=== PATIENT | male | born 1965 | race Caucasian/White ===

== ENCOUNTER 2017-11-13 11:22 | Emergency (ER) | payer BC ==
[~2017-11-13] VITALS: Ht 170.2 cm; Wt 125.0 kg
[2017-11-13] MEDS ORDERED: acetaminophen 325mg tablet PO ONE (11:35)
[2017-11-13 12:45] LABS: PARTIAL THROMBOPLASTIN TIME 25 SECONDS (22-32); PROTHROMBIN TIME 9.9 SECONDS (9.0-12.0)
[2017-11-13 12:50] LABS: ALANINE AMINOTRANSFERASE 80 U/L (12-78); ALBUMIN/GLOBULIN RATIO 1.1 (1.1-1.5); ALKALINE PHOSPHATASE 74 IU/L (46-116); ANION GAP 8 (8-16); ASPARTATE AMINO TRANSFERASE 45 U/L (10-37); BASOPHILS % (AUTO) 0.3 % (0-1); BILIRUBIN,TOTAL 0.8 MG/DL (0.1-1.0); BLOOD UREA NITROGEN 12 MG/DL (7-18); BUN/CREATININE RATIO 11.3 (5.4-32.0); CALCIUM 9.2 MG/DL (8.5-10.1); CHLORIDE 102 MMOL/L (99-107); CREATININE 1.06 MG/DL (0.60-1.10); EOSINOPHILS # (AUTO) 0.2 X10'3 (0-0.9); EOSINOPHILS % (AUTO) 1.6 % (0-6); GLUCOSE 144 MG/DL (70-104); HEMATOCRIT 41.9 % (42.0-52.0); HEMOGLOBIN 14.3 g/dl (14.0-17.9); LYMPHOCYTES % (AUTO) 7.8 % (21-51); MEAN CORPUSCULAR HEMOGLOBIN 29.7 PG (27.0-31.0); MEAN CORPUSCULAR HGB CONC 34.2 % (33.0-36.5); MEAN CORPUSCULAR VOLUME 86.8 FL (78-98); MEAN PLATELET VOLUME 6.8 FL (7.4-10.4); MONOCYTES # (AUTO) 0.8 X10'3 (0-0.9); MONOCYTES % (AUTO) 6.2 % (2-12); NEUTROPHILS # (AUTO) 10.3 X10'3 (1.8-7.7); NEUTROPHILS % (AUTO) 84.1 % (42-75); PLATELET COUNT 221 X10'3 (140-440); POTASSIUM 3.5 MMOL/L (3.5-5.1); RED BLOOD COUNT 4.83 X10'6 (4.70-6.10); RED CELL DISTRIBUTION WIDTH 13.9 % (11.5-14.5); SODIUM 137 MMOL/L (135-145); TOTAL CARBON DIOXIDE 27.2 MMOL/L (24-32); TOTAL PROTEIN 7.5 G/DL (6.4-8.2); WHITE BLOOD COUNT 12.3 X10'3 (4.5-11.0); eGFR 74 ML/MIN
[2017-11-13] MEDS ORDERED: hydrALAZINE 20mg/ml inj. IV ONE (13:00)
[2017-11-13] MEDS ORDERED: ketorolac tromethamine 15mg/ml inj. IV ONE (13:05)
[2017-11-13] MEDS ORDERED: ipratropium/albuterol 3ml nebule NEB ONE (13:10)
[2017-11-13] MEDS ORDERED: methylPREDNISolone sod succ 125mg/2ml vial IV ONE (13:10)
[2017-11-13 13:12] LABS: CLARITY,URINE CLEAR (Clear); COLOR,URINE YELLOW (Yellow); GLUCOSE, URINE 250 mg/dl (Neg); KETONES,URINE NEGATIVE (Neg); LEUKOCYTE ESTERASE ,URINE NEGATIVE (Neg); NITRITES, URINE NEGATIVE (Neg); OCCULT BLOOD,URINE MODERATE (Neg); PROTEIN,URINE 100 mg/dl (Neg); UROBILINOGEN,URINE 0.2 E.U/dL (0.2-1.0)
[2017-11-13 13:13] LABS: UA COLLECTION TYPE URINAL
[2017-11-13 13:23] LABS: BACTERIA,URINE NONE SEEN /HPF (Neg); RBC,URINE NONE SEEN /HPF (0-2); SQUAMOUS EPITHELIAL CELL,UR FEW /LPF (FEW); WBC,URINE NONE SEEN /HPF (0-4)
[2017-11-13] MEDS ORDERED: ondansetron/PF 4mg/2ml inj IV ONE (13:45)
[2017-11-13 14:20] LABS: D-DIMER 0.63 MG/L FEU (0-0.50)
[2017-11-13] MEDS ORDERED: iohexol 350MG/ML 100ml bottle IV ONE (14:40)
[2017-11-13] MEDS ORDERED: morphine 4 MG/ML inj SYRINge IV ONE (14:40)
[2017-11-13] MEDS ORDERED: levoFLOXACIN-Levaquin 750MG/D5 150 ML IV STA (14:41)
[2017-11-13] MEDS ORDERED: ALBU8.5H8 IH (16:01)
[2017-11-13] MEDS ORDERED: PRED20TA PO (16:01)
[2017-11-13] MEDS ORDERED: LEVO750T21 PO (16:01)
[2017-11-13] MEDS ORDERED: BENZ-16 PO (16:01)
[2017-11-13 16:27] VITALS: BP 139/69
== END 2017-11-13 17:01 | disposition home or self-care (01) ==
LOC: ER 11:23
DX: J32.2 Chronic ethmoidal sinusitis (principal); J40 Bronchitis, not specified as acute or chronic; I10 Essential (primary) hypertension; E78.00 Pure hypercholesterolemia, unspecified; Z88.0 Allergy status to penicillin; Z79.899 Other long term (current) drug therapy
CPT/HCPCS: 36415; 71045; 71275; 80053; 81001; 83605; 83880; 84145; 84484; 85025; 85379; 85610; 85730; 87040; 93005; 94640; 94760; 96365; 96366; 96375; 99285; J0360; J1885; J1956; J2270; J2405; J2930; J7030; Q9967

== ENCOUNTER 2020-03-31 00:30 | Inpatient (IN) | payer BC ==
[~2020-03-31] VITALS: Ht 170.2 cm; Wt 123.0 kg
[~2020-03-31 00:30] MED LIST: ALBU8.5H8 IH; BENZ-16 PO
[2020-03-31 01:05] LABS: BASOPHILS # (AUTO) 0.1 X10'3 (0-0.2); BASOPHILS % (AUTO) 0.6 % (0-1); EOSINOPHILS # (AUTO) 0.5 X10'3 (0-0.9); EOSINOPHILS % (AUTO) 4.7 % (0-6); HEMATOCRIT 40.1 % (42.0-52.0); HEMOGLOBIN 13.5 g/dl (14.0-17.9); LYMPHOCYTES # (AUTO) 2.4 X10'3 (1.1-4.8); LYMPHOCYTES % (AUTO) 21.9 % (21-51); MEAN CORPUSCULAR HEMOGLOBIN 29.7 PG (27.0-31.0); MEAN CORPUSCULAR HGB CONC 33.7 g/dL (33.0-36.5); MEAN PLATELET VOLUME 6.8 FL (7.4-10.4); MONOCYTES # (AUTO) 0.6 X10'3 (0-0.9); MONOCYTES % (AUTO) 5.4 % (2-12); NEUTROPHILS # (AUTO) 7.3 X10'3 (1.8-7.7); NEUTROPHILS % (AUTO) 67.4 % (42-75); PLATELET COUNT 285 X10'3 (140-440); RED BLOOD COUNT 4.55 X10'6 (4.70-6.10); RED CELL DISTRIBUTION WIDTH 14.3 % (11.5-14.5); WHITE BLOOD COUNT 10.9 X10'3 (4.5-11.0)
[2020-03-31 01:13] LABS: ALANINE AMINOTRANSFERASE 67 U/L (12-78); ALBUMIN 4.2 G/DL (3.4-5.0); ALBUMIN/GLOBULIN RATIO 1.1 (1.1-1.5); ALKALINE PHOSPHATASE 74 IU/L (46-116); ANION GAP 13 (8-16); ASPARTATE AMINO TRANSFERASE 32 U/L (10-37); BILIRUBIN,TOTAL 0.8 MG/DL (0.1-1.0); BLOOD UREA NITROGEN 17 MG/DL (7-18); BUN/CREATININE RATIO 12.8 (5.4-32.0); CALCIUM 9.7 MG/DL (8.5-10.1); CHLORIDE 102 MMOL/L (99-107); CREATININE 1.33 MG/DL (0.60-1.10); GLUCOSE 152 MG/DL (70-104); POTASSIUM 3.6 MMOL/L (3.5-5.1); SODIUM 141 MMOL/L (135-145); TOTAL CARBON DIOXIDE 25.7 MMOL/L (24-32); TOTAL PROTEIN 8.2 G/DL (6.4-8.2); eGFR 56 ML/MIN
[2020-03-31 01:20] LABS: MAGNESIUM 2.1 MG/DL (1.5-2.4)
[2020-03-31] MEDS ORDERED: furosemide 10 MG/1 ML 10ml inj IV ONE (01:30)
[2020-03-31] MEDS ORDERED: bisacodyl 10mg suppository rectal RC PRN (02:15)
[2020-03-31] MEDS ORDERED: HYDROcodone/acetaminophen 10/325mg tab PO PRN (02:15)
[2020-03-31] MEDS ORDERED: magnesium 2GM in 50ml NS 50 ML IV PRN (02:15)
[2020-03-31] MEDS ORDERED: ondansetron/PF 4mg/2ml inj IV PRN (02:15)
[2020-03-31] MEDS ORDERED: potassium Cl 20 mEq SR tablet PO PRN (02:15)
[2020-03-31] MEDS ORDERED: magnesium Cl slow-release 64mg tablet PO PRN (02:15)
[2020-03-31] MEDS ORDERED: HYDROcodone/acetaminophen 5mg/325mg tablet PO PRN (02:15)
[2020-03-31] MEDS ORDERED: acetaminophen 325mg tablet PO PRN ×2 (02:15)
[2020-03-31] MEDS ORDERED: magnesium hydroxide 30ml (MOM) UD suspension PO PRN (02:15)
[2020-03-31] MEDS ORDERED: magnesium 4gm in 100ml NS 100 ML IV PRN (02:15)
[2020-03-31] MEDS ORDERED: potassium Cl 40MEQ/1/2NS 520ml 520 ML IV PRN ×2 (02:15)
[2020-03-31] MEDS ORDERED: morphine 2 MG/ML inj. syringe IV PRN ×2 (02:15)
[2020-03-31] MEDS ORDERED: mag hydrox/Alum hydrox/simeth 30ml oral suspension PO PRN (02:15)
--- NOTE | 2020-03-31 02:32 | NUR ---
SCANNER IN ROOM 9 NOT WORKING
[2020-03-31] MEDS: K and/or MAG REPLACEMENT MC SCH ×2 (08:00→20:00)
[2020-03-31] MEDS: furosemide 40mg/4ml inj IV SCH ×2 (08:00→19:54)
[2020-03-31] MEDS: enoxaparin 40mg/0.4ml syringe SUBCUT SCH (08:00)
[2020-03-31 08:30] LABS: CHOLESTEROL 157 MG/DL (0-200); HDL CHOLESTEROL 39 MG/DL (35-60); LDL CHOLESTEROL 89 MG/DL (50-100); TRIGLYCERIDES 289 MG/DL (20-135)
[2020-03-31 10:50] VITALS: BP 122/77
--- NOTE | 2020-03-31 11:12 | NUR ---
TC FROM FOR CONDITION REPORT. INFORMED THAT FLINT HAS BEEN MOVED TO INPATIENT ROOM (5604J). ADDITIONAL CONTACT INFO GIVEN: PATIENT'S SISTER, ELIZABETH VELASCO
[2020-03-31] MEDS ORDERED: FLU VACC QS2020-21(6MOS UP)/PF 60 MCG/0.5 ML SYRINGE IMVAC ONE (12:05)
[2020-03-31] MEDS ORDERED: METO-395 PO (12:22)
[2020-03-31] MEDS ORDERED: ATOR10TA70 PO (12:22)
[2020-03-31] MEDS ORDERED: FENO134C PO (12:33)
[2020-03-31] MEDS ORDERED: LISI1TAB29 PO (12:33)
[2020-03-31] MEDS ORDERED: AMLO10TA PO (12:33)
[2020-03-31] MEDS ORDERED: LISI-600 PO (14:39)
[2020-03-31 15:00] VITALS: BP 126/66
[2020-03-31] MEDS ORDERED: albuterol 2.5 MG/3 ML nebule NEB PRN (15:00)
--- NOTE | 2020-03-31 15:38 | NUR ---
Paged Dr Mitchell PAGER ID: [phone] MESSAGE: [phone] Kristi [phone] Venancio Holt I was asked to inform you that they saw a possible clavicle fracture on the chest xray. Thank you.
[2020-03-31] MEDS: atorvastatin 10mg tablet PO SCH (15:56)
[2020-03-31] MEDS: metoprolol succinate 25mg (24-HOUR) SR. Tablet PO SCH (15:56)
[2020-03-31] MEDS: lisinopril 20mg tablet PO SCH (15:57)
[2020-03-31 18:00] VITALS: BP 105/64
--- NOTE | 2020-03-31 18:19 | NUR ---
Problems reprioritized. Patient report given, questions answered & plan of care reviewed with Christina SOTELO.
--- NOTE | 2020-03-31 18:59 | NUR ---
Patient in room PCU 3027. I have received report from DEEPAK Berry and had the opportunity to ask questions and assume patient care.
[2020-03-31] MEDS ORDERED: temazepam 15mg capsule PO PRN (21:00)
[2020-03-31 22:00] VITALS: BP 122/81
[2020-04-01 02:00] VITALS: BP 97/59
[2020-04-01 06:00] VITALS: BP 124/74
--- NOTE | 2020-04-01 06:10 | NUR ---
Problems reprioritized. Patient report given, questions answered & plan of care reviewed with Lex SOTELO and Zulay SOTELO.
[2020-04-01 06:26] LABS: HEMOGLOBIN 12.6 g/dl (14.0-17.9); MEAN CORPUSCULAR HGB CONC 34.1 g/dL (33.0-36.5); MEAN CORPUSCULAR VOLUME 88.1 FL (78-98); PLATELET COUNT 266 X10'3 (140-440); RED CELL DISTRIBUTION WIDTH 14.3 % (11.5-14.5); WHITE BLOOD COUNT 9.1 X10'3 (4.5-11.0)
--- NOTE | 2020-04-01 06:32 | NUR ---
Orientee documentation: I have reviewed and agree with all interventions, assessments performed and documented by DEEPAK Duffy.
[2020-04-01 06:35] LABS: ALBUMIN 3.9 G/DL (3.4-5.0); ANION GAP 10 (8-16); BLOOD UREA NITROGEN 25 MG/DL (7-18); BUN/CREATININE RATIO 17.2 (5.4-32.0); CALCIUM 9.7 MG/DL (8.5-10.1); CHLORIDE 104 MMOL/L (99-107); CHOL/HDL RATIO 4.6 (0.00-4.99); CHOLESTEROL 153 MG/DL (0-200); CREATININE 1.45 MG/DL (0.60-1.10); GLUCOSE 110 MG/DL (70-104); HDL CHOLESTEROL 33 MG/DL (35-60); LDL CHOLESTEROL 76 MG/DL (50-100); MAGNESIUM 2.2 MG/DL (1.5-2.4); POTASSIUM 3.5 MMOL/L (3.5-5.1); SODIUM 141 MMOL/L (135-145); TOTAL CARBON DIOXIDE 27.2 MMOL/L (24-32); TRIGLYCERIDES 286 MG/DL (20-135); eGFR 51 ML/MIN
[2020-04-01] MEDS: furosemide 40mg/4ml inj IV SCH ×2 (08:00→20:21)
[2020-04-01] MEDS: K and/or MAG REPLACEMENT MC SCH ×2 (08:00→20:00)
[2020-04-01] MEDS: amLODIPine 5mg tablet PO SCH (08:01)
[2020-04-01] MEDS: fenofibrate 145mg tablet PO SCH (08:01)
[2020-04-01] MEDS: metoprolol succinate 25mg (24-HOUR) SR. Tablet PO SCH (08:02)
[2020-04-01] MEDS: lisinopril 20mg tablet PO SCH (08:02)
[2020-04-01] MEDS: atorvastatin 10mg tablet PO SCH (08:02)
[2020-04-01] MEDS: enoxaparin 40mg/0.4ml syringe SUBCUT SCH (08:05)
[2020-04-01 11:00] VITALS: BP 130/76
[2020-04-01] MEDS ORDERED: metoprolol tartrate 1mg/ml inj IV PRN (11:45)
[2020-04-01] MEDS ORDERED: nitroGLYCERIN 0.4mg SUBLingual tab SL PRN (11:45)
[2020-04-01] MEDS ORDERED: regadenoson 0.4mg/5ml syringe IV ONE (11:45)
[2020-04-01] MEDS ORDERED: aminophylline 250mg/10ml inj. IV PRN (11:45)
[2020-04-01 15:00] VITALS: BP 115/70
[2020-04-01] MEDS ORDERED: iohexol 350MG/ML 100ml bottle IV ONE (15:29)
[2020-04-01 18:00] VITALS: BP 117/48
--- NOTE | 2020-04-01 18:13 | NUR ---
Problems reprioritized. Patient report given, questions answered & plan of care reviewed with Christina SOTELO.
--- NOTE | 2020-04-01 19:44 | NUR ---
Patient in room PCU 3027. I have received report from Lex RN/ Zulay RN and had the opportunity to ask questions and assume patient care.
[2020-04-01 22:00] VITALS: BP 90/57
[2020-04-02] VITALS (17 sets, daily range): BP systolic 85–115; BP diastolic 43–69
[2020-04-02 06:19] LABS: HEMOGLOBIN 12.3 g/dl (14.0-17.9); MEAN CORPUSCULAR HEMOGLOBIN 30.1 PG (27.0-31.0); MEAN CORPUSCULAR HGB CONC 34.1 g/dL (33.0-36.5); MEAN CORPUSCULAR VOLUME 88.2 FL (78-98); MEAN PLATELET VOLUME 6.8 FL (7.4-10.4); PLATELET COUNT 271 X10'3 (140-440); RED BLOOD COUNT 4.08 X10'6 (4.70-6.10); RED CELL DISTRIBUTION WIDTH 14.1 % (11.5-14.5); WHITE BLOOD COUNT 7.8 X10'3 (4.5-11.0)
[2020-04-02 06:25] LABS: ALBUMIN 3.7 G/DL (3.4-5.0); ANION GAP 8 (8-16); BLOOD UREA NITROGEN 32 MG/DL (7-18); CALCIUM 9.6 MG/DL (8.5-10.1); CHLORIDE 104 MMOL/L (99-107); CREATININE 1.78 MG/DL (0.60-1.10); GLUCOSE 110 MG/DL (70-104); MAGNESIUM 2.5 MG/DL (1.5-2.4); POTASSIUM 3.4 MMOL/L (3.5-5.1); SODIUM 141 MMOL/L (135-145); TOTAL CARBON DIOXIDE 29.1 MMOL/L (24-32); eGFR 40 ML/MIN
--- NOTE | 2020-04-02 06:30 | NUR ---
Patient in room U 3027. I have received report from RENU SOTELO and had the opportunity to ask questions and assume patient care. PT TALKING ON PHONE WITH . CALL LIGHT IN REACH. NO DISTRESS. Addendum: 04/02/20 at 0771 by Ricarda Young RN Amended: Links added.
--- NOTE | 2020-04-02 06:35 | NUR ---
Problems reprioritized. Patient report given, questions answered & plan of care reviewed with DEEPAK Chowdary.
[2020-04-02] MEDS: atorvastatin 10mg tablet PO SCH (07:51)
[2020-04-02] MEDS: fenofibrate 145mg tablet PO SCH (07:51)
[2020-04-02] MEDS: enoxaparin 40mg/0.4ml syringe SUBCUT SCH (07:52)
[2020-04-02] MEDS: potassium Cl 20 mEq SR tablet PO PRN ×3 (07:54→21:31)
[2020-04-02] MEDS: K and/or MAG REPLACEMENT MC SCH ×2 (08:00→20:00)
[2020-04-02] MEDS: furosemide 40mg/4ml inj IV SCH ×2 (10:25→21:32)
[2020-04-02] MEDS: lisinopril 20mg tablet PO SCH (10:28)
[2020-04-02] MEDS: amLODIPine 5mg tablet PO SCH (10:29)
[2020-04-02] MEDS: metoprolol succinate 25mg (24-HOUR) SR. Tablet PO SCH (10:29)
--- NOTE | 2020-04-02 12:14 | NUR ---
Problems reprioritized. Patient report given, questions answered & plan of care reviewed with JOYCELYN Bronson RN. Addendum: 04/02/20 at 1215 by Ricarda Young RN Amended: Links added.
--- NOTE | 2020-04-02 12:15 | NUR ---
Patient in room [place] [address]. I have received report from and had the opportunity to ask questions and assume patient care. Addendum: 04/02/20 at 1327 by Sherri Greenberg RN Patient in room [place] [address]. I have received report from DEEPAK Chowdary and had the opportunity to ask questions and assume patient care.
[2020-04-02] MEDS ORDERED: iohexol 350MG/ML 100ml bottle IV ONE (12:21)
[2020-04-02] MEDS ORDERED: nitroGLYCERIN-Tridil 50MG/D5W 250 ML IV ONE (12:21)
[2020-04-02] MEDS ORDERED: LIDOcaine 1% (10mg/ml)w/preservative injection 20ml MDV ONE (12:21)
[2020-04-02] MEDS ORDERED: verapamil 2.5 mg/ml inj IV ONE (12:21)
[2020-04-02] MEDS ORDERED: heparin 1,000unit/ml 10ml vial 10 ML ONE (12:21)
[2020-04-02] MEDS ORDERED: midazolam 2 mg/2 ml injection ONE ×4 (12:21→13:21)
[2020-04-02] MEDS ORDERED: fentaNYL/PF 50MCG/1 ML 2ML syringe ONE ×2 (12:21→13:24)
[2020-04-02] MEDS ORDERED: OXAZEpam 15mg capsule PO PRN (14:25)
[2020-04-02] MEDS ORDERED: proCHLORperazine 10 MG/2 ml inj IV PRN (14:25)
[2020-04-02] MEDS ORDERED: ondansetron/PF 4mg/2ml inj IV PRN (14:25)
--- NOTE | 2020-04-02 16:17 | NUR ---
Patient in room U 3027. I have received report from SPRING FORMER MACHINE and had the opportunity to ask questions and assume patient care.
--- NOTE | 2020-04-02 16:50 | NUR ---
Problems reprioritized. Patient report given, questions answered & plan of care reviewed with DEEPAK Ruelas.
--- NOTE | 2020-04-02 16:50 | NUR ---
Patient in room PCU 3027. I have received report from Sherri SOTELO and had the opportunity to ask questions and assume patient care.
--- NOTE | 2020-04-02 17:09 | NUR ---
Paged Respiratory Re Venancio Holt [id number] Can I get somebody to move pt's Bipap machine to ACCE in room 309 please. [phone] Thank you :)
--- NOTE | 2020-04-02 17:15 | NUR ---
Transferred patient to ACCE room 309 per MD orders, with wheelchair. Helped pt ambulate to bed with standby assistance. DEEPAK Ruelas at bedside to take over patient's care. All pt needs met at this time.
--- NOTE | 2020-04-02 17:15 | NUR ---
patient arrived to floor, vital signs and 2 RN skin check performed. Pili
[2020-04-03] VITALS (7 sets, daily range): BP systolic 81–118; BP diastolic 36–67
--- NOTE | 2020-04-03 06:39 | NUR ---
Problems reprioritized. Patient report given, questions answered & plan of care reviewed with MARNIE SOTELO.
[2020-04-03 07:25] LABS: HEMATOCRIT 32.9 % (42.0-52.0); HEMOGLOBIN 11.1 g/dl (14.0-17.9); MEAN CORPUSCULAR HEMOGLOBIN 29.9 PG (27.0-31.0); MEAN CORPUSCULAR HGB CONC 33.7 g/dL (33.0-36.5); MEAN CORPUSCULAR VOLUME 88.7 FL (78-98); PLATELET COUNT 243 X10'3 (140-440); RED BLOOD COUNT 3.71 X10'6 (4.70-6.10); RED CELL DISTRIBUTION WIDTH 13.9 % (11.5-14.5); WHITE BLOOD COUNT 6.3 X10'3 (4.5-11.0)
[2020-04-03 07:45] LABS: ALBUMIN 3.4 G/DL (3.4-5.0); ANION GAP 11 (8-16); BLOOD UREA NITROGEN 39 MG/DL (7-18); BUN/CREATININE RATIO 21.8 (5.4-32.0); CALCIUM 9.2 MG/DL (8.5-10.1); CHLORIDE 104 MMOL/L (99-107); CREATININE 1.79 MG/DL (0.60-1.10); GLUCOSE 120 MG/DL (70-104); MAGNESIUM 2.5 MG/DL (1.5-2.4); POTASSIUM 3.6 MMOL/L (3.5-5.1); SODIUM 141 MMOL/L (135-145); TOTAL CARBON DIOXIDE 26.1 MMOL/L (24-32); eGFR 40 ML/MIN
[2020-04-03] MEDS: metoprolol succinate 25mg (24-HOUR) SR. Tablet PO SCH (07:50)
[2020-04-03] MEDS: amLODIPine 5mg tablet PO SCH (07:52)
[2020-04-03] MEDS: enoxaparin 40mg/0.4ml syringe SUBCUT SCH (07:53)
[2020-04-03] MEDS: furosemide 40mg/4ml inj IV SCH ×2 (07:54→20:00)
[2020-04-03] MEDS: fenofibrate 145mg tablet PO SCH (07:54)
[2020-04-03] MEDS: atorvastatin 10mg tablet PO SCH (07:54)
[2020-04-03] MEDS: lisinopril 20mg tablet PO SCH (07:54)
--- NOTE | 2020-04-03 18:15 | NUR ---
Patient in room MED 309. I have received report from DEEPAK Baker and had the opportunity to ask questions and assume patient care.
--- NOTE | 2020-04-03 18:16 | NUR ---
SBAR report given to Layla SOTELO, emar reviewed, questions answered
[2020-04-03] MEDS: K and/or MAG REPLACEMENT MC SCH (19:20)
[2020-04-04 02:00] VITALS: BP 105/60
--- NOTE | 2020-04-04 04:44 | NUR ---
Rt. was up until 2a.m worried about his fanatical situation .I place Social Service order per protocol ,so he can get help.We will continue with pt. care.
[2020-04-04 06:00] VITALS: BP 89/51
--- NOTE | 2020-04-04 06:20 | NUR ---
Problems reprioritized. Patient report given, questions answered & plan of care reviewed with DEEPAK Kelly.
[2020-04-04 06:23] LABS: HEMATOCRIT 33.7 % (42.0-52.0); HEMOGLOBIN 11.5 g/dl (14.0-17.9); MEAN CORPUSCULAR HEMOGLOBIN 30.1 PG (27.0-31.0); MEAN CORPUSCULAR HGB CONC 34.1 g/dL (33.0-36.5); MEAN CORPUSCULAR VOLUME 88.2 FL (78-98); MEAN PLATELET VOLUME 6.9 FL (7.4-10.4); PLATELET COUNT 236 X10'3 (140-440); RED BLOOD COUNT 3.82 X10'6 (4.70-6.10); RED CELL DISTRIBUTION WIDTH 13.7 % (11.5-14.5); WHITE BLOOD COUNT 6.3 X10'3 (4.5-11.0)
[2020-04-04 06:28] LABS: ALBUMIN 3.6 G/DL (3.4-5.0); ANION GAP 7 (8-16); BLOOD UREA NITROGEN 39 MG/DL (7-18); BUN/CREATININE RATIO 24.8 (5.4-32.0); CHLORIDE 105 MMOL/L (99-107); CREATININE 1.57 MG/DL (0.60-1.10); GLUCOSE 138 MG/DL (70-104); MAGNESIUM 2.8 MG/DL (1.5-2.4); POTASSIUM 3.6 MMOL/L (3.5-5.1); SODIUM 140 MMOL/L (135-145); TOTAL CARBON DIOXIDE 28.4 MMOL/L (24-32); eGFR 46 ML/MIN
--- NOTE | 2020-04-04 07:45 | NUR ---
Patient in room MED 309. I have received report from DEEPAK Rich and had the opportunity to ask questions and assume patient care.
[2020-04-04] MEDS: furosemide 40mg/4ml inj IV SCH ×2 (08:00→19:51)
[2020-04-04] MEDS: K and/or MAG REPLACEMENT MC SCH ×2 (08:00→19:59)
[2020-04-04] MEDS: metoprolol succinate 25mg (24-HOUR) SR. Tablet PO SCH (08:00)
[2020-04-04] MEDS: lisinopril 20mg tablet PO SCH (08:00)
[2020-04-04] MEDS: amLODIPine 5mg tablet PO SCH (08:00)
[2020-04-04] MEDS: enoxaparin 40mg/0.4ml syringe SUBCUT SCH (09:04)
[2020-04-04] MEDS: atorvastatin 10mg tablet PO SCH (09:05)
[2020-04-04] MEDS: fenofibrate 145mg tablet PO SCH (09:05)
[2020-04-04] MEDS: PEG 400/HYPROMELLOSE/GLYCERIN 15ml bottle EACHEYE PRN (09:08)
[2020-04-04 11:00] VITALS: BP 112/60
[2020-04-04 15:00] VITALS: BP 108/59
[2020-04-04 18:00] VITALS: BP 108/50
--- NOTE | 2020-04-04 18:48 | NUR ---
Problems reprioritized. Patient report given, questions answered & plan of care reviewed with DEEPAK Ruelas.
[2020-04-04 22:00] VITALS: BP 108/54
[2020-04-05 02:00] VITALS: BP 109/68
[2020-04-05 06:00] VITALS: BP 100/56
--- NOTE | 2020-04-05 06:18 | NUR ---
Patient in room MED 309. I have received report from yuli harmon and had the opportunity to ask questions and assume patient care.
[2020-04-05 06:38] LABS: HEMOGLOBIN 12.6 g/dl (14.0-17.9); MEAN CORPUSCULAR HEMOGLOBIN 30.4 PG (27.0-31.0); MEAN CORPUSCULAR HGB CONC 34.1 g/dL (33.0-36.5); MEAN CORPUSCULAR VOLUME 89.1 FL (78-98); PLATELET COUNT 251 X10'3 (140-440); RED BLOOD COUNT 4.15 X10'6 (4.70-6.10); WHITE BLOOD COUNT 7.2 X10'3 (4.5-11.0)
[2020-04-05 06:39] LABS: ANION GAP 9 (8-16); BLOOD UREA NITROGEN 30 MG/DL (7-18); BUN/CREATININE RATIO 20.3 (5.4-32.0); CALCIUM 9.1 MG/DL (8.5-10.1); CHLORIDE 105 MMOL/L (99-107); CREATININE 1.48 MG/DL (0.60-1.10); GLUCOSE 107 MG/DL (70-104); MAGNESIUM 2.7 MG/DL (1.5-2.4); POTASSIUM 3.7 MMOL/L (3.5-5.1); SODIUM 142 MMOL/L (135-145); TOTAL CARBON DIOXIDE 28.1 MMOL/L (24-32); eGFR 50 ML/MIN
--- NOTE | 2020-04-05 06:49 | NUR ---
Problems reprioritized. Patient report given, questions answered & plan of care reviewed with RASHAAD SOTELO.
[2020-04-05] MEDS: fenofibrate 145mg tablet PO SCH (08:00)
[2020-04-05] MEDS: K and/or MAG REPLACEMENT MC SCH ×2 (08:00→20:00)
[2020-04-05] MEDS: metoprolol succinate 25mg (24-HOUR) SR. Tablet PO SCH (08:00)
[2020-04-05] MEDS: furosemide 40mg/4ml inj IV SCH ×2 (09:50→19:32)
[2020-04-05] MEDS: atorvastatin 10mg tablet PO SCH ×2 (09:51→10:00)
[2020-04-05] MEDS: enoxaparin 40mg/0.4ml syringe SUBCUT SCH (09:53)
[2020-04-05] MEDS: PEG 400/HYPROMELLOSE/GLYCERIN 15ml bottle EACHEYE PRN (09:54)
[2020-04-05 10:00] VITALS: BP 103/66
--- NOTE | 2020-04-05 13:53 | NUR ---
Initial: Pt admit DX MV stenosis, CHF, HTN, and hyperlipidemia per EMR. Pt PO 75-100% avg heart healthy/2L fluid-restricted diet meeting needs. TG 286 on admit receiving lipitor and tricor. LBM 04/03. Will continue to monitor. Rec: 1. continue heart healthy/2L fluid-restricted per MD 2. bowel care per rx 3. weekly wts Addendum: 04/05/20 at [address] Amended: Links added.
--- NOTE | 2020-04-05 17:00 | NUR ---
jose martinez notified of pt going into afib approx 1600 rate controlled,60-70s bp 101/65,advised to give evening dose of lopressor early
[2020-04-05 18:00] VITALS: BP 100/52
--- NOTE | 2020-04-05 18:14 | NUR ---
Patient in room MED 309. I have received report from Braulio SOTELO and had the opportunity to ask questions and assume patient care.
--- NOTE | 2020-04-05 18:40 | NUR ---
Problems reprioritized. Patient report given, questions answered & plan of care reviewed with yuli harmon.
[2020-04-05 22:00] VITALS: BP 114/70
[2020-04-06 02:00] VITALS: BP 115/69
[2020-04-06 06:00] VITALS: BP 102/58
--- NOTE | 2020-04-06 06:00 | NUR ---
Problems reprioritized. Patient report given, questions answered & plan of care reviewed with Mariela SOTELO.
--- NOTE | 2020-04-06 06:15 | NUR ---
Patient in room MED 309. I have received report from yuli harmon and had the opportunity to ask questions and assume patient care.
[2020-04-06] MEDS: K and/or MAG REPLACEMENT MC SCH ×2 (08:00→20:00)
[2020-04-06] MEDS: furosemide 40mg/4ml inj IV SCH ×2 (10:04→21:34)
[2020-04-06] MEDS: lisinopril 10 MG tablet PO SCH (10:05)
[2020-04-06] MEDS: metoprolol succinate 25mg (24-HOUR) SR. Tablet PO SCH (10:06)
[2020-04-06] MEDS: fenofibrate 145mg tablet PO SCH (10:06)
[2020-04-06] MEDS: enoxaparin 40mg/0.4ml syringe SUBCUT SCH (10:07)
[2020-04-06] MEDS: PEG 400/HYPROMELLOSE/GLYCERIN 15ml bottle EACHEYE PRN (10:07)
[2020-04-06 11:00] VITALS: BP 107/54
[2020-04-06 14:00] VITALS: BP 104/58
--- NOTE | 2020-04-06 15:18 | NUR ---
[facility] sent transfer back paper to floor. Paper was filled out and signed by CRISTIAN and Dr. Quarles and faxed back to [phone]. Also 2 copies are in the front of the patient's chart.
[2020-04-06 18:00] VITALS: BP 108/63
--- NOTE | 2020-04-06 18:00 | NUR ---
Patient in room MED 309. I have received report from Mariela SOTELO and had the opportunity to ask questions and assume patient care.
--- NOTE | 2020-04-06 18:26 | NUR ---
Problems reprioritized. Patient report given, questions answered & plan of care reviewed with yuli harmon.
[2020-04-06 22:00] VITALS: BP 99/63
[2020-04-07 02:00] VITALS: BP 103/67
[2020-04-07 06:00] VITALS: BP 95/47
--- NOTE | 2020-04-07 06:01 | NUR ---
Problems reprioritized. Patient report given, questions answered & plan of care reviewed with Mariela SOTELO.
--- NOTE | 2020-04-07 06:19 | NUR ---
Patient in room MED 309. I have received report from yuli harmon and had the opportunity to ask questions and assume patient care.
[2020-04-07] MEDS: PEG 400/HYPROMELLOSE/GLYCERIN 15ml bottle EACHEYE PRN (07:11)
[2020-04-07] MEDS: furosemide 40mg/4ml inj IV SCH (07:12)
[2020-04-07] MEDS: fenofibrate 145mg tablet PO SCH (07:13)
[2020-04-07] MEDS: enoxaparin 40mg/0.4ml syringe SUBCUT SCH (07:18)
[2020-04-07 07:47] LABS: BASOPHILS # (AUTO) 0.1 X10'3 (0-0.2); BASOPHILS % (AUTO) 1.1 % (0-1); EOSINOPHILS # (AUTO) 0.9 X10'3 (0-0.9); EOSINOPHILS % (AUTO) 9.3 % (0-6); HEMATOCRIT 37.7 % (42.0-52.0); HEMOGLOBIN 12.7 g/dl (14.0-17.9); LYMPHOCYTES # (AUTO) 2.9 X10'3 (1.1-4.8); LYMPHOCYTES % (AUTO) 30.6 % (21-51); MEAN CORPUSCULAR HEMOGLOBIN 29.7 PG (27.0-31.0); MEAN CORPUSCULAR HGB CONC 33.6 g/dL (33.0-36.5); MEAN CORPUSCULAR VOLUME 88.4 FL (78-98); MEAN PLATELET VOLUME 7.1 FL (7.4-10.4); MONOCYTES # (AUTO) 0.7 X10'3 (0-0.9); MONOCYTES % (AUTO) 7.5 % (2-12); NEUTROPHILS # (AUTO) 4.9 X10'3 (1.8-7.7); NEUTROPHILS % (AUTO) 51.5 % (42-75); PLATELET COUNT 272 X10'3 (140-440); RED BLOOD COUNT 4.26 X10'6 (4.70-6.10); WHITE BLOOD COUNT 9.5 X10'3 (4.5-11.0)
[2020-04-07 07:57] LABS: ANION GAP 10 (8-16); BLOOD UREA NITROGEN 32 MG/DL (7-18); BUN/CREATININE RATIO 19.3 (5.4-32.0); CALCIUM 9.5 MG/DL (8.5-10.1); CHLORIDE 102 MMOL/L (99-107); CREATININE 1.66 MG/DL (0.60-1.10); GLUCOSE 112 MG/DL (70-104); MAGNESIUM 2.5 MG/DL (1.5-2.4); POTASSIUM 3.8 MMOL/L (3.5-5.1); SODIUM 140 MMOL/L (135-145); TOTAL CARBON DIOXIDE 27.6 MMOL/L (24-32); eGFR 44 ML/MIN
[2020-04-07] MEDS: K and/or MAG REPLACEMENT MC SCH ×2 (08:00→20:00)
[2020-04-07] MEDS ORDERED: iohexol 350MG/ML 100ml bottle IV ONE (09:59)
[2020-04-07] MEDS ORDERED: iohexol 350 MG/ML 50ML vial IV ONE (10:25)
[2020-04-07 11:00] VITALS: BP 102/68
[2020-04-07] MEDS: atorvastatin 10mg tablet PO SCH (12:55)
[2020-04-07] MEDS: metoprolol succinate 25mg (24-HOUR) SR. Tablet PO SCH (12:56)
[2020-04-07] MEDS: lisinopril 10 MG tablet PO SCH (12:56)
[2020-04-07 14:00] VITALS: BP 100/64
[2020-04-07 18:00] VITALS: BP 100/64
--- NOTE | 2020-04-07 18:15 | NUR ---
Problems reprioritized. Patient report given, questions answered & plan of care reviewed with yuli sabillon.
[2020-04-07] MEDS: furosemide 40mg tablet PO SCH (20:41)
[2020-04-07 22:00] VITALS: BP 105/63
[2020-04-08 02:00] VITALS: BP 100/64
--- NOTE | 2020-04-08 04:48 | NUR ---
Received call from Hans at [facility] transfer center with bed assignment, [address] bed 2. Transport arranged through [facility] with expected pick-up time of 0830. Confirmed with transfer center that this transfer time would work and the bed would be held at this time. Patient updated on POC and transfer to [facility] for which he verbalized understanding and is in agreement with the plan.
[2020-04-08] MEDS: PEG 400/HYPROMELLOSE/GLYCERIN 15ml bottle EACHEYE PRN (05:40)
--- NOTE | 2020-04-08 06:40 | NUR ---
Patient in room MED 309. I have received report from Christina SOTELO and had the opportunity to ask questions and assume patient care.
[2020-04-08] MEDS: metoprolol succinate 25mg (24-HOUR) SR. Tablet PO SCH (07:19)
[2020-04-08] MEDS: fenofibrate 145mg tablet PO SCH (07:20)
[2020-04-08] MEDS: atorvastatin 10mg tablet PO SCH (07:20)
[2020-04-08] MEDS: furosemide 40mg tablet PO SCH (07:20)
[2020-04-08] MEDS: lisinopril 10 MG tablet PO SCH (07:20)
[2020-04-08] MEDS: enoxaparin 40mg/0.4ml syringe SUBCUT SCH (07:20)
[2020-04-08 07:26] VITALS: BP 102/64
--- NOTE | 2020-04-08 09:00 | NUR ---
Report called to Randy brice RN at [place], patient stable for transfer.
--- NOTE | 2020-04-08 09:05 | NUR ---
Patient taken by toni by SAMANTHA to be transferred to [place].
== END 2020-04-08 09:05 | disposition short-term general hospital (02) | DRG 286 ==
LOC: ER 00:31 → ED HOLD 02:15 → PCU 3S 02:16 → MED 3N 04-02 17:15
PROVIDERS: ADMIT Family Medicine; ATTEND Family Medicine
PROC: 3E02340 Introduction of Influenza Vaccine into Muscle, Percutaneous Approach (ICD-10-PCS; 2020-03-31)
PROC: 5A09357 Assistance with Respiratory Ventilation, Less than 24 Consecutive Hours, Continuous Positive Airway Pressure (ICD-10-PCS; 2020-04-01)
PROC: 4A02XM4 Measurement of Cardiac Total Activity, External Approach (ICD-10-PCS; 2020-04-01)
PROC: 3E073KZ Introduction of Other Diagnostic Substance into Coronary Artery, Percutaneous Approach (ICD-10-PCS; 2020-04-01)
PROC: B32T1ZZ Computerized Tomography (CT Scan) of Left Pulmonary Artery using Low Osmolar Contrast (ICD-10-PCS; 2020-04-01)
PROC: B3201ZZ Computerized Tomography (CT Scan) of Thoracic Aorta using Low Osmolar Contrast (ICD-10-PCS; 2020-04-01)
PROC: B32S1ZZ Computerized Tomography (CT Scan) of Right Pulmonary Artery using Low Osmolar Contrast (ICD-10-PCS; 2020-04-01)
PROC: 4A023N7 Measurement of Cardiac Sampling and Pressure, Left Heart, Percutaneous Approach (ICD-10-PCS; principal; 2020-04-02)
PROC: B2111ZZ Fluoroscopy of Multiple Coronary Arteries using Low Osmolar Contrast (ICD-10-PCS; 2020-04-02)
PROC: B2151ZZ Fluoroscopy of Left Heart using Low Osmolar Contrast (ICD-10-PCS; 2020-04-02)
PROC: 5A09357 Assistance with Respiratory Ventilation, Less than 24 Consecutive Hours, Continuous Positive Airway Pressure (ICD-10-PCS; 2020-04-02)
PROC: 5A09357 Assistance with Respiratory Ventilation, Less than 24 Consecutive Hours, Continuous Positive Airway Pressure (ICD-10-PCS; 2020-04-03)
PROC: B3201ZZ Computerized Tomography (CT Scan) of Thoracic Aorta using Low Osmolar Contrast (ICD-10-PCS; 2020-04-07)
PROC: B32S1ZZ Computerized Tomography (CT Scan) of Right Pulmonary Artery using Low Osmolar Contrast (ICD-10-PCS; 2020-04-07)
PROC: B32T1ZZ Computerized Tomography (CT Scan) of Left Pulmonary Artery using Low Osmolar Contrast (ICD-10-PCS; 2020-04-07)
DX: T82.857A Stenosis of other cardiac prosthetic devices, implants and grafts, initial encounter (principal); I50.43 Acute on chronic combined systolic (congestive) and diastolic (congestive) heart failure; I13.0 Hypertensive heart and chronic kidney disease with heart failure and stage 1 through stage 4 chronic kidney disease, or unspecified chronic kidney disease; N17.9 Acute kidney failure, unspecified; D64.9 Anemia, unspecified; E78.00 Pure hypercholesterolemia, unspecified; E78.5 Hyperlipidemia, unspecified; Z20.822 Contact with and (suspected) exposure to COVID-19; E87.6 Hypokalemia; G47.33 Obstructive sleep apnea (adult) (pediatric); I34.2 Nonrheumatic mitral (valve) stenosis; N18.9 Chronic kidney disease, unspecified; Y83.1 Surgical operation with implant of artificial internal device as the cause of abnormal reaction of the patient, or of later complication, without mention of misadventure at the time of the procedure; F17.220 Nicotine dependence, chewing tobacco, uncomplicated; Z95.3 Presence of xenogenic heart valve; Z23 Encounter for immunization; Z88.0 Allergy status to penicillin; Y92.89 Other specified places as the place of occurrence of the external cause
CPT/HCPCS: 36415; 71045; 71275; 74174; 74175; 80048; 80053; 80061; 83735; 83880; 84484; 85025; 85027; 87081; 87635; 93005; 93306; 93308; 93458; 94660; 94760; 96374; 96376; 99152; 99153; 99285; A5120; A6258; A9500; C1769; C1894; G0378; J1644; J1650; J1940; J2001; J2250; J3010; J3490; Q2039; Q9967

== ENCOUNTER 2020-11-15 21:56 | Emergency (ER) | payer BC, OTHER, SELFPAY ==
[~2020-11-15] VITALS: Ht 170.2 cm; Wt 126.5 kg
[~2020-11-15 21:56] MED LIST changes: +ALBU8.5H17 IH; -ALBU8.5H8 IH; +AMLO10TA PO; +ATOR10TA70 PO; -BENZ-16 PO; +FENO134C PO; +LISI20TA28 PO; +METO-395 PO
[2020-11-16] MEDS ORDERED: HYDR-3965 PO (01:43)
[2020-11-16] MEDS ORDERED: HYDROcodone/acetaminophen 5mg/325mg tablet PO ONE (02:35)
[2020-11-16 02:49] VITALS: BP 118/76
--- NOTE | 2020-11-16 02:51 | NUR ---
PT WAS DISCHARGED BY MD BEFORE NURSING ASSESSMENTS DONE
== END 2020-11-16 02:50 | disposition home or self-care (01) ==
LOC: ER 21:57
DX: M25.511 Pain in right shoulder (principal); E78.00 Pure hypercholesterolemia, unspecified; I11.0 Hypertensive heart disease with heart failure; I50.9 Heart failure, unspecified; G47.39 Other sleep apnea; Z98.890 Other specified postprocedural states; Z88.0 Allergy status to penicillin; Z79.899 Other long term (current) drug therapy; X58.XXXA Exposure to other specified factors, initial encounter; Y93.89 Activity, other specified; Y92.89 Other specified places as the place of occurrence of the external cause; Y99.8 Other external cause status
CPT/HCPCS: 73030; 99283